=== PATIENT | male | born 1950 | race Caucasian/White ===

== ENCOUNTER 2017-05-27 20:05 | Emergency (ER) | payer OTHER ==
[2017-05-27 20:38] VITALS: BP 160/101
[2017-05-27] MEDS ORDERED: Diphtheria,Pertussis(Acell),Tetanus Vaccine 0.5 ML SDV IM ONE (20:52)
[2017-05-27] MEDS ORDERED: Bacitracin Oint 1 GM U/D Packet TOP ONE (20:54)
--- NOTE | 2017-05-27 20:59 | EDM.PDOC ---
ED HPI GENERAL MEDICAL PROBLEM - General Chief Complaint: Laceration Stated Complaint: CUT RING FINGER LT HAND Time Seen by Provider: 05/27/17 20:55 Source of Information: Reports: Patient, Family (spouse) History Limitations: Reports: No Limitations - History of Present Illness INITIAL COMMENTS - FREE TEXT/NARRATIVE: Was trimming bushes when caught his left ring finger with the clippers, cutting the tip of it off. Unsure if tetanus is current. Onset: Today Onset Date: 05/27/17 Onset Time: 18:30 Location: Reports: Upper Extremity, Left Quality: Reports: Throbbing Severity: Moderate Improves with: Reports: None, Other (did soak with epsom salt) Worsens with: Reports: None Context: Reports: Trauma Associated Symptoms: Reports: No Other Symptoms right finger Pain Score (Numeric/FACES): 3 - Related Data Allergies Allergy/AdvReac Type Severity Reaction Status Date / Time No Known Allergies Allergy Verified 05/27/17 20:31 Home Meds: Home Meds Valsartan/Hydrochlorothiazide [Diovan Hct 160-25 mg Tablet] 1 tab PO DAILY 05/27 [History] Past Medical History Cardiovascular History: Reports: Hypertension - Past Surgical History GI Surgical History: Reports: Hernia, Abdominal Social & Family History - Tobacco Use Smoking Status *Q: Never Smoker - Alcohol Use Days Per Week of Alcohol Use: 5 Number of Drinks Per Day: 3 Total Drinks Per Week: 15 - Recreational Drug Use Recreational Drug Use: No ED ROS GENERAL - Review of Systems Review Of Systems: See Below Constitutional: Reports: No Symptoms HEENT: Reports: No Symptoms Respiratory: Reports: No Symptoms Cardiovascular: Reports: No Symptoms Skin: Reports: Other (laceration to tip of left ring finger) Neurological: Reports: No Symptoms Hematologic/Lymphatic: Reports: No Symptoms ED EXAM, SKIN/RASH Exam: See Below Exam Limited By: No Limitations General Appearance: Alert, WD/WN, No Apparent Distress Respiratory/Chest: No Respiratory Distress, Lungs Clear, Normal Breath Sounds, No Accessory Muscle Use, Chest Non-Tender Cardiovascular: Normal Peripheral Pulses, Regular Rate, Rhythm, No Edema, No Gallop, No JVD, No Murmur, No Rub Extremities: Other (left ring finger with laceration to tip of finger) Skin: Other (laceration noted) Location, Skin: Upper Extremity, Left Lymphatic: No Adenopathy ED SKIN PROCEDURES - Laceration/Wound Repair Left Distal Finger Lac/Wound length In cm: 3 Appearance: Subcutaneous, Irregular, Clean Distal NVT: Neuro & Vascular Intact, No Tendon Injury Anesthetic Type: Digital Local Anesthesia - Lidocaine (Xylocaine): 1% Plain Local Anesthetic Volume: 3cc Skin Prep: Chlorhexidine (Hibiciens) Exploration/Debridement/Repair: Wound Explored, No Foreign Material Found, Wound Margins Revised Closed with: Sutures Suture Size: 4-0 # of Sutures: 7 Sterile Dressing Applied: Nurse Tetanus Status Addressed: Yes Complications: No Course - Vital Signs Last Recorded V/S: Last Vital Signs Temp 99.7 F 05/27/17 20:37 Pulse 107 H 05/27/17 20:37 Resp 16 05/27/17 20:37 BP 160/101 H 05/27/17 20:37 Pulse Ox 93 L 05/27/17 20:37 - Orders/Labs/Meds Orders: Active Orders 24 hr Category Date Time Status Vaccines to be Administered [RC] PER UNIT ROUTINE Care 05/27/17 20:52 Active Meds: Medications Discontinued Medications Generic Name Dose Route Start Last Admin Trade Name Jennifer PRN Reason Stop Dose Admin Bacitracin 1 dose 05/27/17 20:54 05/27/17 21:09 Bacitracin Oint 1 Gm TOP 05/27/17 20:55 1 dose ONETIME ONE Administration Diphtheria/Tetanus/Acell Pertussis 0.5 ml 05/27/17 20:52 05/27/17 21:06 Adacel IM 05/27/17 20:53 0.5 ml .ONCE ONE Administration Lidocaine HCl Confirm 05/27/17 21:03 05/27/17 21:09 Xylocaine-Mpf 1% Administered 05/27/17 21:04 Not Given Dose 5 ml .ROUTE .STK-MED ONE Lidocaine HCl 5 ml 05/27/17 21:04 05/27/17 21:09 Xylocaine-Mpf 1% INJECT 05/27/17 21:05 5 ml ONETIME ONE Administration Departure - Departure Time of Disposition: 21:47 Disposition: Home, Self-Care 01 Condition: Good Clinical Impression: Laceration of left ring finger Qualifiers: Encounter type: initial encounter Damage to nail status: without damage Foreign body presence: without foreign body Qualified Code(s): S61.215A - Laceration without foreign body of left ring finger without damage to nail, initial encounter - Discharge Information Instructions: Laceration Care, Adult, [id number] Referrals: PCP,None [Primary Care Provider] - Forms: ED Department Discharge Additional Instructions: Wound dressed with bacitracin and tube gauze. Pt to keep clean and dry x 24 hours. Followup for suture removal in 10 days. Monitor for s/s of infection. Tdap given to update tetanus status. - Problem List & Annotations (1) Laceration of left ring finger SNOMED Code(s): 192465687 Code(s): S61.215A - LACERATION W/O FB OF L RNG FNGR W/O DAMAGE TO NAIL, INIT Status: Acute Priority: Medium Current Visit: Yes Qualifiers: Encounter type: initial encounter Damage to nail status: without damage Foreign body presence: without foreign body Qualified Code(s): S61.215A - Laceration without foreign body of left ring finger without damage to nail, initial encounter - My Orders Last 24 Hours: My Active Orders 05/27/17 20:52 Vaccines to be Administered [RC] PER UNIT ROUTINE - Assessment/Plan Last 24 Hours: My Active Orders 05/27/17 20:52 Vaccines to be Administered [RC] PER UNIT ROUTINE
[2017-05-27] MEDS ORDERED: Lidocaine 1% 50 ML MDV INJECT SCH (21:00)
== END 2017-05-27 22:03 | disposition home or self-care (01) ==
LOC: JP.ED 20:05
DX: S61.215A Laceration without foreign body of left ring finger without damage to nail, initial encounter (principal); W23.1XXA Caught, crushed, jammed, or pinched between stationary objects, initial encounter
CPT/HCPCS: 12002; 90471; 90715; 99283-25